=== PATIENT | male | born 1980 | race Caucasian/White ===

== ENCOUNTER 2017-01-25 19:11 | Inpatient (IN) | payer MEDICAID ==
--- NOTE | ~2017-01-25 | HP ---
Unit #: [id number] #: [id number] Patient: ARMINDA PRICE [id number] [place] [address] [id number] MR#: [id number] NAME: ARMINDA PRICE ROOM: P258 Age: 36 Sex: M Admission Date: 01/25/2017 : 1980 Attending Physician: Fausto Angel M.D. Admitting Physician: Fausto Angel M.D. Primary Care Physician: Primary Care Physician No HISTORY AND PHYSICAL HISTORY OF PRESENT ILLNESS Arminda is a 36 year old admitted to [address] [place] [address] with depression and verbalizing wanting to hurt himself. PAST MEDICAL HISTORY Obesity. PAST SURGICAL HISTORY 1. Rhinoplasty. 2. Bilateral feet. ALLERGIES Aleve (facial swelling). SOCIAL HISTORY He denies cigarettes, alcohol and illicit drug use. FAMILY HISTORY Medically noncontributory. REVIEW OF SYSTEMS CONSTITUTIONAL: No fever or chills. HEENT: Denies any sore throat, ear pain or runny nose. CARDIOVASCULAR: Denies chest pain, irregular heart rhythm or palpitations. CHEST: Denies shortness of breath or cough. No hemoptysis. GASTROINTESTINAL: Denies nausea, vomiting, diarrhea or chronic constipation. ENDOCRINE: Denies history of increased thirst or urination. No recent significant weight loss or gain. GENITOURINARY: Denies dysuria, frequency, or hematuria. SKIN: Denies any rashes. HEMATOLOGIC: Denies history of increased bleeding or bruising. MUSCULOSKELETAL: Denies any hot, swollen joints. No generalized muscle pain. NEUROLOGIC: Denies problems with vision or speech. No frequent, severe headaches. No numbness, tingling or weakness in any extremities. Denies loss of bladder or bowel control. CURRENT MEDICATIONS 1. Celexa 20 mg daily. 2. Vistaril p.r.n. 3. Desyrel p.r.n. 4. Milk of Magnesia p.r.n. Unit #: [id number] #: [id number] Patient: ARMINDA PRICE 5. Maalox p.r.n. 6. Tylenol p.r.n. PHYSICAL EXAMINATION GENERAL: Alert, morbidly obese, no apparent distress. VITAL SIGNS: Blood pressure 122/92, heart rate 80, respirations 16, temperature 98.6. WEIGHT: 270. HEIGHT: 6 feet 0 inches. SKIN: Warm and dry without rash or lesion. HEENT: Normocephalic. TMs not viewed. Oral and nasal passages clear. Conjunctivae clear. PERRLA. EOMs intact. NECK: Supple without lymphadenopathy or thyromegaly. HEART: Regular rate and rhythm without murmur. LUNGS: Clear. ABDOMEN: Soft, nontender. : Not done. EXTREMITIES: No evidence of cyanosis, clubbing or edema. Moves all without focal deficit. NEUROLOGICAL: Grossly within normal limits. Cranial Nerves: II: Visual molina are intact. III, IV AND : Extraocular movements are intact. Pupils are equal, round and reactive to light. V: Facial sensation is grossly normal. VII: Facial movements and expression are normal. VIII: Auditory acuity grossly intact. IX, X: Uvula is midline. Phonation is normal. XI: Patient shrugs shoulders and turns head normally. XII: Tongue protrudes in the midline. Sensory and Motor Function: Sensory and motor sensation is grossly normal. Motor: moves all extremities well. Coordination: Gait is normal. Deep Tendon Reflexes: Intact. IMPRESSION Psychiatric admission. RECOMMENDATIONS PSYCHIATRIC: Per psychiatrist. MEDICAL: See no contraindications to participate in facility's activities. MEDICAL PROGNOSIS Good. MEDICAL CONDITION Stable. Dictated by... Sushila Cheema P.A.-C. for Mila Malik/yamil TD: 01/26/2017 19:50 JOB #: [id number] Unit #: [id number] #: [id number] Patient: ARMINDA PRICE HISTORY AND PHYSICAL Page 1 of 1 X Sushila Cheema HISTORY AND PHYSICAL
--- NOTE | ~2017-01-25 | PN ---
Unit #: [id number] #: [id number] Patient: ARMINDA PRICE [id number] [facility] [address] [place] [address] [id number] I MR#: [id number] NAME: ARMINDA PRICE. ROOM: P258 Age: 36 Sex: M Admission Date: 01/25/2017 : 1980 Attending Physician: Fausto Angel M.D. Admitting Physician: Fausto Angel M.D. Primary Care Physician: Primary Care Physician Dottie FOSTER NOTES DATE 01/27/2017 DISCUSSION Mr. Price is a 36-year-old white male who was seen today and chart was reviewed and case was discussed with the staff. He remains anxious, withdrawn, depressed and rather seclusive to himself. Meanwhile, he has been cooperative with treatment recommendations and has been taking medications and tolerating them fairly well with no reported side effects. MENTAL STATUS EXAMINATION Young white male who was casually dressed with fair personal hygiene and appears to be in no acute distress or discomfort. He was awake and alert on interaction with intact orientation. His mood was anxious with congruent affect. He denies any suicidal or homicidal ideations. His insight and judgement remains slightly impaired. TREATMENT PLAN 1. Will continue on his current medications and treatment protocol and will monitor his response to the medication and make further adjustments as needed. 2. Will continue to follow up. Dictated by... Fausto Angel M.D. IAA/yamil TD: 01/27/2017 18:06 JOB #: [id number] Unit #: [id number] #: [id number] Patient: ARMINDA PRICE RAÚL PROGRESS NOTES Page 1 of 1 X Fausto Angel MD PROGRESS NOTE
--- NOTE | ~2017-01-25 | PN ---
Unit #: [id number] #: [id number] Patient: ARMINDA PRICE [id number] [facility] [address] [place] [address] [id number] MR#: [id number] NAME: ARMINDA PRICE. ROOM: P258 Age: 36 Sex: M Admission Date: 01/25/2017 : 1980 Attending Physician: Fausto Angel M.D. Admitting Physician: Fausto Angel M.D. Primary Care Physician: Primary Care Physician Dottie OLSEN PROGRESS NOTES DATE January 28, 2017 DISCUSSION Mr. Price is a 36-year-old white male, who was seen today and chart was reviewed and the case was discussed with the staff. He appears to be doing somewhat better and has been able to come out of his room and has been socializing and interacting, and has been compliant with the treatment recommendations. MENTAL STATUS EXAMINATION Young white male, who was casually dressed with fair personal hygiene and appears to be in no acute distress or discomfort. He was awake and alert on interaction with intact orientation. His mood was anxious with a congruent affect. He denies any suicidal or homicidal ideations. His insight and judgment remain slightly impaired. TREATMENT PLAN 1. We will continue him on his current medications and treatment protocol, and will monitor his response to the medications, and make further adjustments as needed. 2. We will continue to followup. Dictated by... Mila Mack/elly TD: 01/30/2017 04:13 JOB #: [id number] Unit #: [id number] #: [id number] Patient: ARMINDA PRICE PROGRESS NOTES Page 1 of 1 X Fausto Angel MD PROGRESS NOTE
--- NOTE | ~2017-01-25 | DS ---
Unit #: [id number] #: [id number] Patient: ARMINDA PRICE [id number] [facility] [address] [place] [address] [id number] MR#: [id number] NAME: ARMINDA PRICE. ROOM: P258 Age: 36 Sex: M Admission Date: 01/25/2017 : 1980 Discharge Date: 01/29/2017 Attending Physician: Fausto Angel M.D. Primary Care Physician: No Primary Care Physician DISCHARGE SUMMARY IDENTIFYING DATA Mr. Price is a 36-year-old, single, white male who is a resident of [place], [place], and was self referred to the hospital on a voluntary basis. DISCHARGE DIAGNOSIS Psychiatric: Major depressive disorder, recurrent, moderate, without psychotic features; generalized anxiety disorder. Medical: None. Stressors: Moderate psychosocial stressors per history of present illness, past psychiatric history, and past medical history. Psychiatric History: Please see the Initial Psychiatric Evaluation. Past Medical History: Please see the Initial Psychiatric Evaluation. HOSPITAL COURSE The [facility] referred to the hospital monitoring, p.r.n. medications were initiated, and he was started on his home medication. Celexa was initiated as an antidepressant with a good tolerability and therapeutic response, followed by which, it was decided that he will be discharged home. Will continue treatment on an outpatient basis. DISCHARGE MEDICATIONS Celexa 20 mg a day for depression. CONDITION AT DISCHARGE Stable. PROGNOSIS Fair. Dictated by... Fausto Angel M.D. IAA/ts TD: 01/30/2017 12:22 JOB #: [id number] Unit #: [id number] #: [id number] Patient: ARMINDA PRICE DISCHARGE SUMMARY Page 1 of 1 X Fausto Angel MD X DISCHARGE SUMMARY
--- NOTE | ~2017-01-25 | PA ---
Unit #: [id number] #: [id number] Patient: ARMINDA PRICE [id number] [facility] [address] [place] [address] [id number] I MR#: [id number] NAME: ARMINDA PRICE. ROOM: P258 Age: 36 Sex: M Admission Date: 01/25/2017 : 1980 Date of Assessment: 01/26/2017 Attending Physician: Fausto Angel M.D. Admitting Physician: Fausto Angel M.D. Primary Care Physician: Primary Care Physician No PSYCHIATRIC ASSESSMENT DATE OF SERVICE 01/26/2017. IDENTIFYING DATA Mr. Price is a 36-year-old single white male, who is a resident of [place], [place], and was self-referred to the hospital on a voluntary basis. CHIEF COMPLAINT "I can't take no more of it". HISTORY OF PRESENT ILLNESS Mr. Price is a 36-year-old white male with history of depression and was self-referred to the hospital reporting increasing and worsening depression. Reports that he recently lost his home, his car, his girlfriend and reports that all these things have happened in the past week and "I cannot take it no more." The patient reports that he has been having thoughts about suicide and that he has not had any plan for suicide, but he is "done with it and done with life." He reports he was in the closet with knives and a BB gun and was planning to cut himself with a knife. He does report increasing stressors with feelings of hopelessness and helplessness, and multiple losses and suicidal ideations, intent, and plan and as such, recommendation for inpatient level of care for safety and stabilization was made and the patient was transferred to us. SUBSTANCE ABUSE HISTORY The patient denies any history of alcohol or drug abuse. PAST PSYCHIATRIC HISTORY The patient has had outpatient psychiatric treatment in the past, though currently he is not active in treatment program, is not seeing a psychiatrist, and is not taking any psychotropic medications. PAST MEDICAL HISTORY No acute or chronic medical illnesses. ALLERGIES Naproxen. CURRENT MEDICATIONS None. Unit #: [id number] #: [id number] Patient: ARMINDA PRICE PERSONAL AND SOCIAL HISTORY A 36-year-old white male, who reports that he is single, unemployed, and lives by himself; though, currently he describes himself to be homeless stating that he has lost everything and does report poor social support system. MENTAL STATUS EXAMINATION Young white male, who was casually dressed with fair personal hygiene, appears to be in no acute distress or discomfort. He was awake and alert on interaction with intact orientation to time, place, and person. His mood was anxious and depressed with congruent affect. His speech was slow and goal directed. He reports having suicidal ideations, but denies any homicidal ideations, and also denies any auditory or visual hallucinations. His insight and judgment remain significantly impaired. DIAGNOSTIC IMPRESSION Psychiatric: Major depressive disorder, recurrent, moderate, without psychotic features; generalized anxiety disorder. Medical: None. Stressors: Moderate psychosocial stressors. TREATMENT PLAN 1. The patient has presented with history of mood disorder, and has been decompensating and will need inpatient hospitalization for safety and stabilization. We will start him back on his home medications. We will adjust the medications and monitor response. 2. Supportive therapy was provided to the patient. 3. Safe, structured, and nourishing environment will be reported. ESTIMATED LENGTH OF STAY 5 to 7 days. ABILITY TO HELP SELF Limited. WILLINGNESS TO HELP SELF The patient appears to be willing to help self. STRENGTHS 1. Communicative. 2. Cooperative. PROBLEMS 1. Chronic dysphoric symptoms. 2. Poor social support system. DISCHARGE CRITERIA This will be contingent upon the patient's ability to show resolution of his depression and anxiety and his ability to stay safe to himself, particularly after discharge from the hospital. Dictated by... Mila Mack/zen TD: 01/26/2017 07:22 Unit #: [id number] #: [id number] Patient: ARMINDA PRICE JOB #: [id number] PSYCHIATRIC ASSESSMENT Page 1 of 1 X Fausto Angel MD X PSYCHIATRIC ASSESSMENT
[~2017-01-25 19:11] MED LIST: ALLEGRA60 MG PO; FLAGYL PO; FLEXERIL10 MG PO; PEN-VEE K PO; ROBITUSSIN A-C S5 ML PO; VICODIN 5/1 TAB 5/50 PO
[2017-01-26 12:31] LABS: BASOPHIL% 0.5 % (0-2.5); EOSINOPHIL# 0.1 X10e3 (0-0.7); EOSINOPHIL% 3.4 % (0.0-7.0); HEMOGLOBIN 15.1 gm/dL (13.0-16.0); LYMPHOCYTE# 1.4 X10e3 (1.0-3.5); LYMPHOCYTE% 33.8 % (17.0-45.0); MEAN CELL VOLUME 83.3 FL (83-96); MEAN CORPUSCULAR HEMOGLOBIN 27.4 PG (28-34); MEAN CORPUSCULAR HGB CONC 32.9 g/dL (30-36); MEAN PLATELET VOLUME 8.3 FL (6.5-11.5); MONOCYTE# 0.3 X10e3 (0-1.0); MONOCYTE% 7.5 % (3.0-12.0); NEUTROPHIL# 2.3 X10e3 (1.5-7.1); NEUTROPHIL% 54.8 % (40-75); PLATELET COUNT 206 X10e3 (140-420); RED BLOOD COUNT 5.52 X10e (3.90-5.60); RED CELL DISTRIBUTION WIDTH 14.4 % (11.0-15.5); WHITE BLOOD COUNT 4.2 X10e3 (4.0-10.5)
[2017-01-26 12:37] LABS: DIFF IND NO
[2017-01-26 13:01] LABS: ALBUMIN SERUM 3.4 g/dL (3.5-5.0); BILIRUBIN,TOTAL 1.1 mg/dL (0.2-2.0); CALCIUM SERUM 8.7 mg/dL (8.4-10.2); CREATININE SERUM 0.8 mg/dL (0.6-1.4); GLOM FILT RATE Estimated 114.2 mL/min (>60); PROTEIN TOTAL SERUM 6.2 g/dL (6.0-8.3)
[2017-01-27 09:35] LABS: URINE APPEARANCE CLEAR; URINE BILIRUBIN NEG (NEG); URINE BLOOD NEG (NEG); URINE COLOR YELLOW; URINE GLUCOSE NEG (NEG); URINE KETONE NEG (NEG); URINE LEUKOCYTE ESTERASE TRACE (NEG); URINE NITRATE NEG (NEG); URINE PROTEIN NEG (NEG); URINE SPECIFIC GRAVITY 1.025 (1.003-1.035)
[2017-01-27 09:38] LABS: URBCS1 AUWI 0-2 /[HPF] (0-2); URINE BACTERIA AUWI NEG (NEGATIVE); URINE SQUAMOUS EPITHELIAL CELL OCC /[HPF]
[2017-01-27 10:12] LABS: AMPHETAMINE NEG (NEG); BARBITURATES NEG (NEG); BENZODIAZEPINES NEG (NEG); COCAINE NEG (NEG); MARIJUANA NEG (NEG); OPIATES NEG (NEG); TRICYCLIC ANTIDEPRESSANTS NEG (NEG); U METHADONE NEG (NEG)
== END 2017-01-29 12:30 | disposition home or self-care (01) | DRG 885 ==
LOC: P2L 19:11
PROVIDERS: Psychiatry & Neurology Psychiatry
DX: F33.2 Major depressive disorder, recurrent severe without psychotic features (principal); E66.9 Obesity, unspecified; F41.1 Generalized anxiety disorder; Z88.6 Allergy status to analgesic agent
CPT/HCPCS: 80053; 80307; 81003; 85025